=== PATIENT | male | born 1985 | race African-American/Black ===

== ENCOUNTER 2022-12-26 11:01 | Inpatient (IN) ==
[2022-12-26 12:45] LABS: Basophils # 0.1 10*3/uL (0.0-0.2); Basophils % 0.3 % (0.0-0.8); Eosinophils # 0.2 10*3/uL (0.0-0.87); Eosinophils % 0.7 % (0.00-10.9); Hematocrit 46.8 VOL% (42.0-52.0); Hemoglobin 15.5 GM/DL (14.0-18.0); Immature Granulocytes % 0.7 %; Immature Granulocytes Absolute 0.17 #; Lymphocytes # 4.4 10*3/uL (1.4-4.0); Mean Corpuscular HGB Conc 33.1 GM/DL (32-36); Mean Corpuscular Volume 99.6 FL (87-102); Mean Platelet Volume 9.4 FL (9.6-12.0); Monocytes # 2.6 10*3/uL (0.11-0.8); Neutrophils % 71.3 % (38.7-73.9); Platelet Count 313 T/CUMM (130-400); Red Cell Distribution Width 12.1 % (9.3-17.3); White Blood Count 25.72 T/CUMM (4-12)
[2022-12-26 13:03] LABS: Albumin 3.9 G/DL (3.4-5.0); Bilirubin,Total 0.6 MG/DL (0.20-1.00); Calcium 9.4 MG/DL (8.5-10.1); Osmolality,Calculated 282.1 MOS/KG (273-304); Potassium 4.2 MMOL/L (3.5-5.1)
[2022-12-26 13:04] LABS: Platelet Estimate Normal; Reactive Lymphocytes Slight
[2022-12-26] MEDS ORDERED: CLINDAMYCIN INJ 900 MG/50 ML PREMIX IV ONE (14:11)
[2022-12-26] MEDS ORDERED: FAMOTIDINE 20 MG/2 ML VIAL IV STA (15:19)
[2022-12-26] MEDS ORDERED: ALBUTEROL 2.5 MG/3 ML NEB RESP TX STA (15:20)
[2022-12-26] MEDS ORDERED: ALBUTEROL 1.25 MG/3 ML NEB RESP TX STA (15:21)
[2022-12-26] MEDS ORDERED: MIDAZOLAM 2 MG/2 ML VIAL ONE (15:38)
[2022-12-26] MEDS ORDERED: fentaNYL 100 MCG/2 ML VIAL ONE (15:38)
[2022-12-26] MEDS ORDERED: LIDOCAINE 2% 5 ML VIAL ONE (16:13)
[2022-12-26] MEDS ORDERED: propofoL 200 MG/20 ML VIAL IV ONE (16:13)
[2022-12-26] MEDS ORDERED: SEVOFLURANE 1 UNIT/15 MINUTE INH ONE (16:13)
[2022-12-26] MEDS ORDERED: ONDANSETRON 4 MG/2 ML VIAL ONE ×2 (16:13→16:30)
[2022-12-26] MEDS: HYDROmorphone 1 MG/1 ML SYRINGE IV PRN ×2 (16:30→16:40)
[2022-12-26] MEDS ORDERED: HYDROmorphone 1 MG/1 ML SYRINGE ONE (16:30)
[2022-12-26] MEDS ORDERED: ONDANSETRON 4 MG/2 ML VIAL IV PRN ×2 (16:37→18:15)
[2022-12-26] MEDS ORDERED: KETOROLAC 15 MG/1 ML VIAL IV PRN (18:15)
[2022-12-26] MEDS ORDERED: HYDROmorphone 1 MG/1 ML SYRINGE IV PRN (18:15)
[2022-12-26] MEDS ORDERED: LACTATED RINGERS 1,000 ML IV SCH (18:15)
[2022-12-26] MEDS ORDERED: PROMETHAZINE 25 MG/1 ML VIAL IM PRN (18:15)
[2022-12-26] MEDS: CLINDAMYCIN INJ 900 MG/50 ML PREMIX IV SCH (23:10)
[2022-12-27] MEDS: CLINDAMYCIN INJ 900 MG/50 ML PREMIX IV SCH (07:21)
[2022-12-27] MEDS ORDERED: ENOXAPARIN 40 MG/0.4 ML SYRINGE SUBCUT SCH (10:00)
[2022-12-27 12:23] VITALS: BP 130/78
[2022-12-27] MEDS ORDERED: CLINDAMYCIN 300 MG CAPSULE PO SCH (15:00)
== END 2022-12-27 13:51 | disposition home or self-care (01) | DRG 603 ==
LOC: N.ED 11:01 → N.2E 15:20 → N.ED 15:30 → N.2E 15:42
PROVIDERS: ADMIT Surgery; ATTEND Surgery